=== PATIENT | male | born 1975 | race African-American/Black ===

== ENCOUNTER 2016-10-28 17:08 | Inpatient (IN) | payer OTHER ==
--- NOTE | ~2016-10-28 | HP ---
Unit #: [id number] #: [id number] Patient: PO FRANCIS [id number] [place] [address] [id number] MR#: [id number] NAME: PO FRANCIS ROOM: P211 Age: 41 Sex: M Admission Date: 10/28/2016 : 1975 Attending Physician: Gurvinder Colindres M.D. Admitting Physician: Gurvinder Colindres M.D. Primary Care Physician: Primary Care Physician No HISTORY AND PHYSICAL HISTORY OF PRESENT ILLNESS The patient is a 41-year-old male admitted to [address] [place] [address] on 10/28/2016 for suicidal ideation. PAST MEDICAL HISTORY Chronic low back pain. PAST SURGICAL HISTORY 1. Laminectomy of his lumbar spine. 2. Right knee surgery. ALLERGIES No known drug allergies. SOCIAL HISTORY Patient is unemployed. He smokes 1 pack of cigarettes every 3 days. He drinks 1-1/2 pints of liquor daily and uses cocaine occasionally. FAMILY HISTORY Noncontributory. REVIEW OF SYSTEMS CONSTITUTIONAL: No fever or chills. HEENT: Denies any sore throat, ear pain or runny nose. CARDIOVASCULAR: Denies chest pain, irregular heart rhythm or palpitations. CHEST: Denies shortness of breath or cough. No hemoptysis. GASTROINTESTINAL: Denies nausea, vomiting, diarrhea or chronic constipation. ENDOCRINE: Denies history of increased thirst or urination. No recent significant weight loss or gain. GENITOURINARY: Denies dysuria, frequency, or hematuria. SKIN: Denies any rashes. HEMATOLOGIC: Denies history of increased bleeding or bruising. MUSCULOSKELETAL: Denies any hot, swollen joints. No generalized muscle pain. NEUROLOGIC: Denies problems with vision or speech. No frequent, severe headaches. No numbness, tingling or weakness in any extremities. Denies loss of bladder or bowel control. CURRENT MEDICATIONS Patient is not on any home medications. PHYSICAL EXAMINATION Unit #: [id number] #: [id number] Patient: PO FRANCIS GENERAL: He is awake, alert, oriented, in no acute distress. VITAL SIGNS: Temperature 98.8, heart rate 82, respirations 20, blood pressure 129/81. HEIGHT: 5 feet 11. WEIGHT: 225 pounds. SKIN: Warm and dry without rash or lesion. HEENT: Normocephalic. TMs not viewed. Oral and nasal passages clear. Conjunctivae clear. PERRLA. EOMs intact. NECK: Supple without lymphadenopathy or thyromegaly. HEART: Regular rate and rhythm without murmur. LUNGS: Clear. ABDOMEN: Soft, nontender. : Not done. EXTREMITIES: No evidence of cyanosis, clubbing or edema. Moves all without focal deficit. NEUROLOGICAL: Grossly within normal limits. Cranial Nerves: II: Visual vaughn are intact. III, IV AND : Extraocular movements are intact. Pupils are equal, round and reactive to light. V: Facial sensation is grossly normal. VII: Facial movements and expression are normal. VIII: Auditory acuity grossly intact. IX, X: Uvula is midline. Phonation is normal. XI: Patient shrugs shoulders and turns head normally. XII: Tongue protrudes in the midline. Sensory and Motor Function: Sensory and motor sensation is grossly normal. Motor: moves all extremities well. Coordination: Gait is normal. Deep Tendon Reflexes: Intact. IMPRESSION 1. Psychiatric admission. 2. Polysubstance use. 3. Chronic low back pain. RECOMMENDATIONS PSYCHIATRIC: Per psychiatrist. MEDICAL: No contraindications to participate in facility's activities. MEDICAL PROGNOSIS Good. MEDICAL CONDITION Stable. Dictated by... Altagracia Fierro/vinicius TD: 10/29/2016 17:15 JOB #: [id number] Unit #: [id number] #: [id number] Patient: PO FRANCIS HISTORY AND PHYSICAL Page 1 of 1 X MARILYN SHABAZZ APRN HISTORY AND PHYSICAL
--- NOTE | ~2016-10-28 | PA ---
Unit #: [id number] #: [id number] Patient: PO FRANCIS [id number] [place] [address] [id number] MR#: [id number] NAME: PO FRANCIS ROOM: P211 Age: 41 Sex: M Admission Date: 10/28/2016 : 1975 Date of Assessment: 10/29/2016 Attending Physician: Gurvinder Colindres M.D. Admitting Physician: Gurvinder Colindres M.D. Primary Care Physician: Primary Care Physician No PSYCHIATRIC ASSESSMENT IDENTIFYING INFORMATION The patient is a 41-year-old male admitted to the [address] [place] [address] for alcohol and cocaine use as well as depressed mood. CHIEF COMPLAINT None given. INFORMANT Patient, reliability is good. HISTORY OF PRESENT ILLNESS The patient is a 41-year-old single male admitted to the [address] [place] [address] with a history of alcohol and cocaine use. The patient had also reported positive depression and some suicidal ideation because of his depression and lack of motivation. He had recently resigned from his job in [place] with [employer]. The patient lives with his . He reports daily use of alcohol and reports that when he becomes intoxicated he "wants cocaine." The patient reports previous treatment at [facility] and was an inpatient in this facility in 2008 though he does not seem to recall this. He was at that time prescribed fluoxetine, but apparently did not comply with that medication for any significant period of time. When seen today, the patient denies suicidal or homicidal ideation. He denies recent changes in sleep or appetite. He does report lack of motivation as a prominent symptom, however. PAST PSYCHIATRIC HISTORY As above. PAST MEDICAL HISTORY Noncontributory. MEDICATIONS None. ALLERGIES None. FAMILY HISTORY Noncontributory. SOCIAL HISTORY The patient lives with his . 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 He is a smoker and reports substance use as noted previously. Unit #: [id number] #: [id number] Patient: PO FRANCIS He denies any history of intravenous drug use. MENTAL STATUS EXAMINATION Examination at this time reveals the patient to be a well-developed well-nourished male appearing stated age. He is in no apparent physical distress at the time of examination. He is awake, alert, and oriented in all spheres. His mood is mildly dysphoric. His affect congruent. Speech is generally well-coherent. There are no gross deficits in memory or cognition noted. Intelligence is judged to be in the average range based on fund of knowledge. The patient is cooperative throughout the interview. He is currently reporting no suicidal or homicidal ideation and denies any psychotic symptoms. His judgment and insight appear to be intact. ASSETS AND LIABILITIES The patient's assets: Motivation for change. Liabilities: None noted. DIAGNOSTIC IMPRESSION 1. Cocaine use disorder. 2. Alcohol use disorder. 3. Dysthymic disorder. TREATMENT PLAN The patient remains hospitalized for safety and stabilization. He does not at this point wish to begin treatment with antidepressant medication but instead is requesting initiation of "something for my alcohol." Accordingly, Campral 333 mg 2 tablets 3 times daily will be initiated. The patient looks to be a good candidate for participating in the intensive outpatient program once he is discharged which should take place within 3 to 5 days. Dictated by... Gurvinder Colindres M.D. PENNY/mikayla TD: 10/29/2016 14:09 JOB #: [id number] PSYCHIATRIC ASSESSMENT Page 1 of 1 X Gurvinder Colindres MD X PSYCHIATRIC ASSESSMENT
--- NOTE | ~2016-10-28 | DS ---
Unit #: [id number] #: [id number] Patient: PO FRANCIS [id number] [facility] [address] [place] [address] [id number] MR#: [id number] NAME: PO FRANCIS ROOM: [facility] Age: 41 Sex: M Admission Date: 10/28/2016 : 1975 Discharge Date: Attending Physician: Gurvinder Colindres M.D. Primary Care Physician: Primary Care Physician No DISCHARGE SUMMARY REASON FOR ADMISSION The patient is a 41-year-old male, admitted to the [address] [place] [address] with a history of cocaine and alcohol abuse. HOSPITAL COURSE The patient was admitted to the [address] [place] [address]. He requested initiation of "medication to address my craving" and was therefore begun on Campral 333 mg two tablets t.i.d. the patient tolerated the medication without complaint. He did not wish to initiate antidepressant medication at the time of initial evaluation, but was open to discussing this once he is participating in the chemical dependency intensive outpatient program. He consistently denied suicidal ideation. By 10/30/2016, the patient requested discharge and was agreeable with plan for followup in the chemical dependence intensive outpatient program and discharge was ordered. FINAL DIAGNOSES Alcohol use disorder and cocaine use disorder. DISPOSITION ON DISCHARGE The patient is discharged on the following medication, Campral 333 mg two tablets t.i.d. for alcohol craving. DISCHARGE INSTRUCTIONS No dietary or physical restrictions were placed on the patient at the time of discharge. FOLLOWUP Followup will take place through the auspices of the chemical dependency intensive outpatient program provided by this facility and community mental health resources. PROGNOSIS The patient's prognosis is considered fair. Dictated by... Gurvinder Colindres M.D. CB/molly TD: 10/30/2016 13:53 JOB #: [id number] Unit #: [id number] #: [id number] Patient: PO FRANCIS DISCHARGE SUMMARY Page 1 of 1 X Gurvinder Colindres MD X DISCHARGE SUMMARY
[~2016-10-28 17:08] MED LIST: FLEXERIL PO; NO MEDICATIONS
[2016-10-29 11:26] LABS: BASOPHIL# 0.1 X10e3 (0-0.3); BASOPHIL% 0.7 % (0-2.5); EOSINOPHIL# 0.2 X10e3 (0-0.7); EOSINOPHIL% 2.4 % (0.0-7.0); HEMATOCRIT 44.1 % (38.0-50.0); HEMOGLOBIN 14.2 gm/dL (13.0-16.0); LYMPHOCYTE# 1.9 X10e3 (1.0-3.5); LYMPHOCYTE% 20.9 % (17.0-45.0); MEAN CELL VOLUME 88.9 FL (83-96); MEAN CORPUSCULAR HEMOGLOBIN 28.7 PG (28-34); MEAN CORPUSCULAR HGB CONC 32.3 g/dL (30-36); MEAN PLATELET VOLUME 8.5 FL (6.5-11.5); MONOCYTE# 1.1 X10e3 (0-1.0); MONOCYTE% 11.8 % (3.0-12.0); NEUTROPHIL# 5.9 X10e3 (1.5-7.1); NEUTROPHIL% 64.2 % (40-75); PLATELET COUNT 255 X10e3 (140-420); RED BLOOD COUNT 4.96 X10e (3.90-5.60); RED CELL DISTRIBUTION WIDTH 14.4 % (11.0-15.5); WHITE BLOOD COUNT 9.1 X10e3 (4.0-10.5)
[2016-10-29 11:37] LABS: DIFF IND NO
[2016-10-29 11:43] LABS: THYROID STIMULATING HORMONE 1.2 uIU/ml (0.34-5.60)
[2016-10-29 11:45] LABS: ALBUMIN SERUM 3.9 g/dL (3.5-5.0); BILIRUBIN,TOTAL 0.8 mg/dL (0.2-2.0); BUN/CREATININE RATIO 12.5; CALCIUM SERUM 9.3 mg/dL (8.4-10.2); CREATININE SERUM 1.2 mg/dL (0.6-1.4)
[2016-10-29 11:49] LABS: FREE THYROXIN (T4) 0.64 ng/dL (0.58-1.64)
[2016-10-30 10:50] LABS: URINE APPEARANCE CLOUDY; URINE BLOOD NEG (NEG); URINE COLOR DK YELLOW; URINE GLUCOSE NEG (NEG); URINE KETONE TRACE (NEG); URINE LEUKOCYTE ESTERASE NEG (NEG); URINE NITRATE NEG (NEG); URINE PROTEIN TRACE (NEG); URINE SPECIFIC GRAVITY 1.041 (1.003-1.035)
[2016-10-30 10:59] LABS: URINE BILIRUBIN NEG (NEG)
[2016-10-30 11:15] LABS: AMPHETAMINE NEG (NEG); BARBITURATES NEG (NEG); BENZODIAZEPINES POS (NEG); COCAINE POS (NEG); MARIJUANA NEG (NEG); OPIATES NEG (NEG); TRICYCLIC ANTIDEPRESSANTS NEG (NEG); U METHADONE NEG (NEG)
== END 2016-10-30 14:40 | DRG 897 ==
LOC: P2S 17:08
PROVIDERS: Specialist
DX: F14.20 Cocaine dependence, uncomplicated (principal); F10.20 Alcohol dependence, uncomplicated; F34.1 Dysthymic disorder; Z56.0 Unemployment, unspecified; F17.210 Nicotine dependence, cigarettes, uncomplicated
CPT/HCPCS: 80053; 80307; 81003; 84439; 84443; 85025; 86592